=== PATIENT | male | born 1990 | race Caucasian/White ===

== ENCOUNTER 2022-03-02 15:02 | Emergency (ER) | payer SELFPAY ==
[~2022-03-02] VITALS: Ht 188 cm; Wt 102.1 kg
[2022-03-02] MEDS ORDERED: ONDANSETRON HCL INJ 2MG/ML 2ML 2 MG/ML VIAL IV STA (15:35)
[2022-03-02] MEDS ORDERED: FAMOTIDINE 20 MG/2 ML VIAL IV STA (15:35)
[2022-03-02] MEDS ORDERED: KETOROLAC TROMETHAMINE 30 MG/ML VIAL IV STA (15:35)
[2022-03-02] MEDS ORDERED: SODIUM CHLORIDE 0.9% 1000ML 1,000 ML IV SCH (15:45)
[2022-03-02] MEDS ORDERED: ACETAMINOPHEN 325 MG TAB ONE (15:45)
[2022-03-02] MEDS ORDERED: FAMOTIDINE 20 MG/2 ML VIAL IV ONE (15:50)
[2022-03-02] MEDS ORDERED: SODIUM CHLORIDE 0.9% 1000ML 1,000 ML ONE (15:50)
[2022-03-02] MEDS ORDERED: KETOROLAC TROMETHAMINE 30 MG/ML VIAL ONE (15:50)
[2022-03-02] MEDS ORDERED: ONDANSETRON HCL INJ 2MG/ML 2ML 2 MG/ML VIAL ONE (15:50)
[2022-03-02] MEDS ORDERED: ONDANSETRON ODT4 MG PO (17:11)
[2022-03-02] MEDS ORDERED: DICYCLOMINE HCL20 MG PO (17:11)
[2022-03-02 17:24] VITALS: BP 125/67
== END 2022-03-02 17:26 | disposition home or self-care (01) ==
LOC: FSED 15:20
DX: R50.9 Fever, unspecified (principal); N20.0 Calculus of kidney; R10.30 Lower abdominal pain, unspecified; R11.2 Nausea with vomiting, unspecified; K42.9 Umbilical hernia without obstruction or gangrene
CPT/HCPCS: 74176; 80048; 80076; 81003; 85025; 96374; 96375; 96376; 99284; J1885; J2405; J7030

== ENCOUNTER 2024-04-05 19:09 | Emergency (ER) | payer OTHER ==
[~2024-04-05] VITALS: Ht 188 cm; Wt 108.9 kg
[~2024-04-05 19:09] MED LIST: DICYCLOMINE HCL20 MG PO; ONDANSETRON ODT4 MG PO
[2024-04-05] MEDS ORDERED: DEXAMETHASONE SOD PHOS INJ 4 MG/ML SDV ONE (20:32)
[2024-04-05] MEDS: ACETAMINOPHEN 325 MG TAB PO ONE (20:51)
[2024-04-05 20:53] VITALS: PULSE 98; RESP 20
[2024-04-05] MEDS: DEXAMETHASONE SOD PHOS 10 MG/1 ML VIAL IV ONE (20:53)
[2024-04-05] MEDS: ALBUTEROL/IPRATROPIUM 3 ML NEB NEB ONE (20:53)
[2024-04-05] MEDS: SODIUM CHLORIDE 0.9% 1000ML 1,000 ML IV ONE (20:53)
[2024-04-05] MEDS: LEVOFLOXACIN 750MG/D5W 150ML 150 ML IV SCH (21:01)
[2024-04-05] MEDS ORDERED: IPRAT-ALBUT 0.5-3 ML INH (22:47)
[2024-04-05 22:48] VITALS: PULSE 93; RESP 18; TEMP 99.9; O2SAT 96
[2024-04-05] MEDS ORDERED: LEVOFLOXACIN750 MG PO (22:48)
[2024-04-05] MEDS ORDERED: DEXAMETHASONE6 MG PO (22:50)
== END 2024-04-05 23:42 | disposition home or self-care (01) ==
LOC: FSED 19:16
DX: R50.9 Fever, unspecified (principal); J18.9 Pneumonia, unspecified organism; R07.89 Other chest pain; R05.9 Cough, unspecified; J45.902 Unspecified asthma with status asthmaticus; E78.5 Hyperlipidemia, unspecified; Z11.52 Encounter for screening for COVID-19; R94.31 Abnormal electrocardiogram [ECG] [EKG]
CPT/HCPCS: 0223U; 71046; 80053; 81003; 82553; 84484; 85025; 87400; 93005; 99284; J1100; J7030

== ENCOUNTER 2024-05-19 18:29 | Emergency (ER) | payer OTHER ==
[~2024-05-19] VITALS: Ht 188 cm; Wt 110.5 kg
[~2024-05-19 18:29] MED LIST changes: +DEXAMETHASONE6 MG PO; +IPRAT-ALBUT 0.5-3 ML INH; +LEVOFLOXACIN750 MG PO
[2024-05-19 18:33] VITALS: PULSE 98; RESP 18; TEMP 98
[2024-05-19] MEDS ORDERED: DEXAMETHASONE4 MG PO (19:28)
[2024-05-19] MEDS: DEXAMETHASONE SOD PHOS INJ 4 MG/ML SDV IV ONE (19:33)
[2024-05-19] MEDS: DEXAMETHASONE SOD PHOS INJ 4 MG/ML SDV IM ONE (19:50)
[2024-05-19 19:53] VITALS: BP 147/84; PULSE 98; RESP 18; TEMP 98.4; O2SAT 95
== END 2024-05-19 19:53 | disposition home or self-care (01) ==
LOC: FSED 18:32
DX: R05.9 Cough, unspecified (principal); J45.909 Unspecified asthma, uncomplicated; E78.5 Hyperlipidemia, unspecified
CPT/HCPCS: 71046; 99283; J1100

== ENCOUNTER 2024-07-02 04:09 | Emergency (ER) | payer OTHER ==
[~2024-07-02] VITALS: Ht 188 cm; Wt 104.3 kg
[~2024-07-02 04:09] MED LIST changes: +DEXAMETHASONE4 MG PO
[2024-07-02 04:19] VITALS: PULSE 91; RESP 18; TEMP 98.4
[2024-07-02] MEDS ORDERED: CLEAR EYES REDN30 M1 OU (04:31)
[2024-07-02] MEDS ORDERED: CLARITIN10 MG PO (04:31)
[2024-07-02] MEDS ORDERED: TOBRADEX ST EYE5 ML OU (04:50)
[2024-07-02 04:51] VITALS: BP 131/72; PULSE 79; RESP 17; TEMP 98.3; O2SAT 98
== END 2024-07-02 04:50 | disposition home or self-care (01) ==
LOC: FSED 04:13
DX: H10.13 Acute atopic conjunctivitis, bilateral (principal); R05.9 Cough, unspecified; R09.81 Nasal congestion; E78.5 Hyperlipidemia, unspecified; J45.909 Unspecified asthma, uncomplicated
CPT/HCPCS: 99283